=== PATIENT | female | born 1990 | race Caucasian/White ===

== ENCOUNTER 2019-06-20 16:40 | Emergency (ER) | payer MEDICAID ==
[~2019-06-20] VITALS: Ht 172.7 cm; Wt 56.8 kg
[~2019-06-20 16:40] MED LIST: FOLI1TAB16 PO; MULT-1179 PO; PRED10TA PO
[2019-06-20 17:35] VITALS: BP 117/71
== END 2019-06-20 17:33 | disposition home or self-care (01) ==
LOC: ER 16:41
DX: M22.2X1 Patellofemoral disorders, right knee (principal); J45.909 Unspecified asthma, uncomplicated; F32.9 Major depressive disorder, single episode, unspecified; F10.99 Alcohol use, unspecified with unspecified alcohol-induced disorder; Z59.0 Homelessness; Z56.0 Unemployment, unspecified; Z60.2 Problems related to living alone; Z91.018 Allergy to other foods; Z79.899 Other long term (current) drug therapy; Y90.9 Presence of alcohol in blood, level not specified
CPT/HCPCS: 99281

== ENCOUNTER 2019-11-15 08:18 | Emergency (ER) | payer MEDICAID ==
[~2019-11-15] VITALS: Ht 172.7 cm; Wt 60.0 kg
[2019-11-15 08:23] VITALS: BP 116/66
--- NOTE | 2019-11-15 08:35 | NUR ---
Per pt, she found out that she was positive for Syphillis. She adds that she believes that they treated her completely while in [facility]. No known exposure since that time.
[2019-11-15 09:04] LABS: CLARITY,URINE CLEAR (Clear); COLOR,URINE STRAW (Yellow); GLUCOSE, URINE NEGATIVE (Neg); KETONES,URINE NEGATIVE (Neg); LEUKOCYTE ESTERASE ,URINE SMALL (Neg); NITRITES, URINE NEGATIVE (Neg); OCCULT BLOOD,URINE MODERATE (Neg); PROTEIN,URINE NEGATIVE (Neg); UROBILINOGEN,URINE 0.2 E.U/dL (0.2-1.0)
[2019-11-15] MEDS ORDERED: CefTRIAXone 250MG IM Kit w/LIDOcaine IM ONE (09:05)
[2019-11-15] MEDS ORDERED: metroNIDAZOLE 500mg tablet PO ONE (09:05)
[2019-11-15] MEDS ORDERED: azithromycin 250mg tablet PO ONE (09:05)
[2019-11-15 09:09] LABS: UA COLLECTION TYPE CLN CATCH MIDSTREAM
[2019-11-15 09:11] LABS: BACTERIA,URINE FEW /HPF (Neg); MUCUS STRANDS NONE SEEN /LPF (Neg); SQUAMOUS EPITHELIAL CELL,UR FEW /LPF (FEW); WBC,URINE 0-4 /HPF (0-4)
== END 2019-11-15 10:11 | disposition home or self-care (01) ==
LOC: ER 08:19
DX: A64 Unspecified sexually transmitted disease (principal); J45.909 Unspecified asthma, uncomplicated; F32.9 Major depressive disorder, single episode, unspecified; F17.200 Nicotine dependence, unspecified, uncomplicated; F10.99 Alcohol use, unspecified with unspecified alcohol-induced disorder; Z60.2 Problems related to living alone; Z56.0 Unemployment, unspecified; Z91.018 Allergy to other foods; Z79.899 Other long term (current) drug therapy; Y90.9 Presence of alcohol in blood, level not specified
CPT/HCPCS: 36415; 81001; 87088; 87491; 87591; 96372; 99283; J0696; J3490

== ENCOUNTER 2023-03-12 14:40 | Emergency (ER) | payer MEDICAID ==
[~2023-03-12] VITALS: Ht 175.3 cm; Wt 79.5 kg
[~2023-03-12 14:40] MED LIST changes: -FOLI1TAB16 PO; +FOLI1TAB27 PO
[2023-03-12 15:27] VITALS: BP 123/73
[2023-03-12] MEDS ORDERED: TRAM50TA2 PO (17:41)
== END 2023-03-12 17:56 | disposition home or self-care (01) ==
LOC: ER 14:40
DX: S52.125A Nondisplaced fracture of head of left radius, initial encounter for closed fracture (principal); J45.909 Unspecified asthma, uncomplicated; F32.9 Major depressive disorder, single episode, unspecified; Z72.89 Other problems related to lifestyle; Z56.0 Unemployment, unspecified; Z60.2 Problems related to living alone; Z91.018 Allergy to other foods; Z79.899 Other long term (current) drug therapy; W18.39XA Other fall on same level, initial encounter; Y93.89 Activity, other specified; Y92.89 Other specified places as the place of occurrence of the external cause; Y99.8 Other external cause status
CPT/HCPCS: 73080; 99283; A4565

== ENCOUNTER 2024-04-21 20:10 | Emergency (ER) | payer MEDICAID ==
[~2024-04-21] VITALS: Ht 175.3 cm; Wt 54.5 kg
[2024-04-21 20:15] VITALS: BP 127/81; PULSE 92; RESP 18; TEMP 98.5; O2SAT 97
== END 2024-04-21 22:35 | disposition left against medical advice (07) ==
LOC: ER 20:10
DX: R07.81 Pleurodynia (principal); M25.512 Pain in left shoulder; M25.572 Pain in left ankle and joints of left foot; M79.89 Other specified soft tissue disorders; Z91.018 Allergy to other foods; Z53.21 Procedure and treatment not carried out due to patient leaving prior to being seen by health care provider
CPT/HCPCS: 71101; 73030; 73610

== ENCOUNTER 2024-08-06 16:11 | Emergency (ER) | payer MEDICAID ==
[~2024-08-06] VITALS: Ht 175.3 cm; Wt 56.0 kg
[2024-08-06 16:18] VITALS: BP 123/87; PULSE 112; RESP 16; O2SAT 100
[2024-08-06] MEDS ORDERED: AMOX-580 PO (16:54)
[2024-08-06] MEDS ORDERED: amox tr/potassium clavulanate 875/125mg TAB PO ONE (16:55)
[2024-08-06 17:28] VITALS: TEMP 98.7
== END 2024-08-06 17:30 | disposition home or self-care (01) ==
LOC: ER 16:11
DX: K04.7 Periapical abscess without sinus (principal); J45.909 Unspecified asthma, uncomplicated; F32.A Depression, unspecified; Z56.0 Unemployment, unspecified; Z72.89 Other problems related to lifestyle; Z60.2 Problems related to living alone; Z91.018 Allergy to other foods; Z79.2 Long term (current) use of antibiotics; Z79.52 Long term (current) use of systemic steroids; Z79.899 Other long term (current) drug therapy
CPT/HCPCS: 99283

== ENCOUNTER 2024-09-13 00:20 | Emergency (ER) | payer MEDICAID ==
[~2024-09-13] VITALS: Ht 175.3 cm; Wt 56.8 kg
[2024-09-13 00:22] VITALS: BP 110/67; PULSE 82; RESP 17; TEMP 97.9; O2SAT 100
== END 2024-09-13 02:07 | disposition left against medical advice (07) ==
LOC: ER 00:20
DX: K08.89 Other specified disorders of teeth and supporting structures (principal); Z53.21 Procedure and treatment not carried out due to patient leaving prior to being seen by health care provider